=== PATIENT | male | born 1955 | race Caucasian/White ===

== ENCOUNTER → 2016-11-14 | Outpatient (CLI) | payer MEDICARE, OTHER ==
[2016-03-21 13:19] VITALS: BP 111/59
[~2016-11-14] MED LIST: BACL10TA PO; CHOL10003 PO; CITA20TA9 PO; CYAN10005 PO; CYCL10TA2 PO; DOCU-27 PO; FLUT16SP NS; HYDR25TA9 PO; LEVO125T5 PO; LISI-338 PO; METH-37 PO; MULT-208 PO; OXYC10TA PO; PANT40TA5 PO; RISP1TAB43 PO; TACR1CAP4 PO; ZOLP10TA4 PO
--- NOTE | 2016-11-14 16:32 | KCIC ---
PROCEDURE MR of the left wrist HISTORY Chronic wrist pain. Injury 40 years ago. COMPARISON None available. 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 FINDINGS There is moderate motion degradation. There is a transverse fracture across the proximal waist of the scaphoid. Fracture appears chronic and ununited. The proximal pole demonstrates diffusely low T1 signal which would also support the diagnosis of proximal pole osteonecrosis. Triangular fibrocartilage appears intact. Extensor carpi ulnaris tendon appears intact. Other extensor compartments appear intact. Flexor tendons are intact. The median nerve is unremarkable. Difficult to evaluate scapholunate ligament due to the motion degradation. There is some widening of the scapholunate space which may indicate scapholunate ligament tear or dissociation. There does appear to be an increased scapholunate angle. No definite lunotriquetral ligament tear. There is a small fluid collection anterior to the medial wrist, may represent radiocarpal effusion or a ganglion cyst. There is a small radiocarpal and midcarpal joint effusion. No definite acute fracture. Cystic type change identified within the hamate. No aggressive bone destruction. There is soft tissue edema around the wrist, greatest dorsally. TECHNIQUE Standard noncontrast images are obtained. IMPRESSION 1. 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 2. Widening of the scapholunate distance with increased scapholunate angle, suggesting scapholunate ligament tear and dissociation. Electronically signed by: Moses Mcdonough MD (Nov 14, 2016 16:31:49)
== END | disposition home or self-care (01) ==
LOC: KCIC MRI 15:00
PROVIDERS: ATTEND Nurse Practitioner Family
DX: M25.532 Pain in left wrist (principal)
CPT/HCPCS: 73221

== ENCOUNTER → 2017-06-22 | Outpatient (CLI) | payer MEDICARE, OTHER ==
[2016-03-21 13:19] VITALS: BP 111/59
[~2017-06-22] MED LIST changes: +BUDE10.22 IH; +DIPH25CA58 PO; +DOCU-109 PO; -DOCU-27 PO; +LIDO1ADH TP; +METF-620 PO; +MORP30TA PO; +ONDA4TAB10 SL; +OXYC-327 PO; +TEST200V3 IM
--- NOTE | 2017-06-22 14:36 | KCIC ---
MRI right shoulder without contrast dated 06/22/2017 1:15 PM Indication: Shoulder pain history of rotator cuff tear , pain for 2 weeks prior surgery Comparison: 02/25/2016 Technique: Routine multiplanar multisequence imaging performed. . Findings: Intermediate T2 signal throughout the supraspinatus and infraspinatus portions of the rotator cuff. Full-thickness tear of the central supraspinatus footplate measures approximately 1.5 cm transverse and 1.8 cm AP dimension. There is also involvement of the upper margin of the subscapularis. Torn portion of the cuff is retracted to about the 12:00 position. Mild hypertrophic change of the AC joint. No significant undersurface spurring. Acromion type II morphology. Small amount of subacromial/subdeltoid bursal fluid. Intermediate T2 signal within the substance of the long head biceps tendon proximally. Extra articular portion courses within the bicipital groove. Blunted morphology of the posterior superior labrum. No displaced labral tear or para labral cyst. Mild degenerative change of the glenohumeral joint with mild thinning and surface irregularity of the glenoid articular cartilage. No full-thickness cartilage defect. No significant joint effusion. Suprascapular and spinoglenoid notches are clear. No significant muscle edema or muscle atrophy. IMPRESSION: 1. Rotator cuff tendinopathy with moderate size full-thickness tear of the supraspinatus footplate. The torn portion of the cuff is retracted to about the 12:00 position. 2. Mild AC joint arthropathy with small subacromial/subdeltoid bursal effusion. 3. Mild proximal biceps tendinosis. 4. Small SLAP tear of the posterior superior labrum, likely degenerative type I. 5. Mild degenerative arthrosis and chondromalacia of the glenohumeral joint. Electronically signed by: Moses Morejon MD (06/22/2017 2:33 PM) [facility]
== END | disposition home or self-care (01) ==
LOC: KCIC MRI 12:48
PROVIDERS: ATTEND Orthopaedic Surgery Sports Medicine
DX: S43.431A Superior glenoid labrum lesion of right shoulder, initial encounter (principal); M75.101 Unspecified rotator cuff tear or rupture of right shoulder, not specified as traumatic; M94.211 Chondromalacia, right shoulder; X58.XXXA Exposure to other specified factors, initial encounter; Y93.89 Activity, other specified; Y92.89 Other specified places as the place of occurrence of the external cause; Y99.8 Other external cause status; Z98.890 Other specified postprocedural states
CPT/HCPCS: 73221

== ENCOUNTER 2017-07-10 05:45 | Observation (INO) | payer MEDICARE, OTHER ==
[2017-07-10] VITALS (8 sets, daily range): BP systolic 103–122; BP diastolic 61–72
[~2017-07-10] VITALS: Ht 181.6 cm; Wt 106.1 kg
[~2017-07-10 05:45] MED LIST changes: -LIDO1ADH TP; -ONDA4TAB10 SL; -OXYC-327 PO
[2017-07-10] MEDS ORDERED: CLINDAMYCIN 900MG PREMIX 50 ML IV PRN (06:00)
[2017-07-10] MEDS ORDERED: LIDOCAINE 1% 20 ML VIAL. ONE (06:31)
[2017-07-10] MEDS ORDERED: EPINEPHrine VIAL 30 MG/30 ML VIAL ONE (06:31)
[2017-07-10] MEDS ORDERED: BUPIVACAINE MPF 0.5% 30 ML VIAL. ONE (06:31)
[2017-07-10] MEDS ORDERED: ONDANSETRON PF 4 MG/2 ML VIAL. ONE (07:00)
[2017-07-10] MEDS ORDERED: DEXAMETHASONE SOD PHOS 20 MG/5 ML VIAL. ONE (07:00)
[2017-07-10] MEDS ORDERED: LIDOCAINE 1% PF 2 ML VIAL. ID PRN (07:00)
[2017-07-10] MEDS ORDERED: IV RINGERS,LACTATED 1000ML 1,000 ML IV SCH (07:00)
[2017-07-10] MEDS ORDERED: PROCHLORPERAZINE 10 MG/2 ML VIAL. IV PRN (07:00)
[2017-07-10] MEDS ORDERED: fentaNYL PF VIAL 100 MCG/2 ML VIAL IV PRN ×2 (07:00)
[2017-07-10] MEDS ORDERED: PROPOFOL 20 ML IV ONE (07:00)
[2017-07-10] MEDS ORDERED: LIDOCAINE 2% PF Vial for OR 5 ML VIAL. ONE (07:00)
[2017-07-10] MEDS ORDERED: FAMOTIDINE 20 MG/2 ML VIAL ONE (07:00)
[2017-07-10] MEDS ORDERED: fentaNYL PF VIAL 100 MCG/2 ML VIAL ONE (07:03)
[2017-07-10] MEDS ORDERED: ROCURONIUM 100 MG/10 ML VIAL. ONE (07:03)
[2017-07-10] MEDS ORDERED: ROPIVacaine 0.5% PF 30 ML VIAL. ONE (07:10)
[2017-07-10] MEDS ORDERED: MIDAZOLAM HCL/PF 2 MG/2 ML VIAL. ONE (07:10)
--- NOTE | 2017-07-10 07:32 | DISCH ---
DISCHARGE INSTRUCTIONS Condition on Discharge Condition on Discharge: Stable Activity After Discharge Activity Instructions for Disc: Other, see below Other activity instructions: arm to remain in sling Bathing Instructions: Shower-keep dressing dry Weight Bearing Status after Di: Non weight bearing Diet after Discharge Diet after Discharge: Regular Wound Incision Care Wound/Incision Care: Ice to area for comfort, Keep wound/cast CDI, Change dressing Contacting the DR. after DC Call your doctor for: Concerns you may have Follow-Up Follow up with: Neelam in 2wks Treatment/Equipment after DC Adaptive Equipment Issued: None BLOSSOM AVILA II, MD Jul 10, 2017 07:32
--- NOTE | 2017-07-10 07:34 | PDOC ---
BRIEF OPERATIVE NOTE Date: Jul 10, 2017 Pre-Op Diagnosis Recurrent R RTC tear Post-Op Diagnosis same Procedure Performed Mini-open R RTC repair; Diagnostic R shoulder arthroscopy Surgeon Neelam Martin Anesthesia Type: General, Regional Blood Loss 25mL Complications none BLOSSOM AVILA II, MD Jul 10, 2017 07:33
[2017-07-10] MEDS ORDERED: PHENYLEPHRINE in 0.9% NACL PF 1 MG/10 ML DISP.SYRIN. IV ONE (08:08)
[2017-07-10] MEDS ORDERED: GLYCOPYRROLATE 1 MG/5 ML VIAL. ONE (08:37)
[2017-07-10] MEDS ORDERED: NEOSTIGMINE 10 MG/10 ML VIAL. ONE (08:37)
[2017-07-10] MEDS ORDERED: SEVOFLURANE 61 TO 120 MINUTES. IH ONE (09:10)
[2017-07-10] MEDS ORDERED: OXYC-327 PO (09:26)
[2017-07-10] MEDS ORDERED: DOCU-109 PO (09:27)
[2017-07-10] MEDS ORDERED: ONDA4TAB10 SL (09:27)
[2017-07-10] MEDS ORDERED: LIDO1ADH TP (09:30)
--- NOTE | 2017-07-10 09:49 | OP ---
DATE OF SURGERY: 07/10/2017 SURGEON: Ramon Avila MD POWER AND [employer]OVERY SUPERINTENDENT: Ibeth Martin. PREOPERATIVE DIAGNOSIS: Recurrent right shoulder rotator cuff tear. POSTOPERATIVE DIAGNOSIS: Recurrent right shoulder rotator cuff tear. PROCEDURE PERFORMED: 1. Mini open right shoulder rotator cuff repair. 2. Diagnostic shoulder arthroscopy. FINDINGS: 1. The patient had a full-thickness tear involving his supraspinatus and leading edge of the infraspinatus that was not retracted much past the mid humeral head. The tendon mobility was quite adequate for repair. 2. No loose bodies. 3. The rotator cuff tendon had essentially pulled free from the suture anchor implant as evidenced by intact knots at the remaining suture from his prior repair. 4. He had some degenerative type fraying around his anterior labrum. 5. Biceps was intact. 6. He had grade 2-3 changes at his anterior glenoid, otherwise his glenohumeral cartilage was largely unremarkable. BLOOD LOSS: 25 mL. COMPLICATIONS: None. ANESTHESIA: General plus regional nerve block. REASON FOR PROCEDURE: The patient is a very pleasant 61-year-old gentleman who underwent arthroscopic right shoulder rotator cuff repair with myself a little over a year ago. He had a fall while trimming tree branches and had persistent pain and shoulder dysfunction with loss of motion and strength and therefore, we obtained an MRI, which confirmed my clinical examination of a recurrent rotator cuff tear. We had a discussion of risks, benefits, alternatives of the above procedure and he elected to proceed. DESCRIPTION OF PROCEDURE: The patient was greeted in the preoperative area by myself, where the correct extremity was marked and verified. He was taken to the operative suite after he had successful placement of nerve block by the anesthesiology team. Once in the OR, he was transferred gently supine to the OR table and secured to the bed after successful induction of general anesthetic. We set him up in a beach chair position, maintaining C-spine in neutral position. We then proceeded to prep and drape the right upper extremity in our usual sterile fashion and conducted a standard preoperative timeout. I palpated for his surface anatomy and made an incision through his prior posterolateral portal as I still felt this was appropriate. I introduced the blunt arthroscopic trocar into the glenohumeral joint, followed by the camera. I then used a spinal to localize anterosuperior portal and created this with the scalpel to my prior portal. I then conducted my diagnostic arthroscopy with the above-noted findings. I then removed all excess arthroscopic fluid and the arthroscopic instrumentation and proceeded with the mini open portion. We did a re-prep around the shoulder. I then palpated, marked the surface anatomy and made approximately 6 cm incision just at the lateral edge of his lateral acromion, incised skin with a scalpel and dissected down to the fascia overlying his deltoid with electrocautery. I then identified the deltoid raphae, used a scalpel to enter this, followed by Natalia and electrocautery to further develop this plane. I placed my 2 Gelpi retractors. I then excised bursal tissue and identified his humeral head and rotator cuff. I then passed a #2 Ultrabraid through the rotator cuff tear in a simple configuration. For the most part, his tendon quality was okay. I then created a trough in his rotator cuff footprint and removed the prior sutures. After this, I passed the #2 Ultrabraid through in a sequential fashion, the top of one and bottom of another through a bone tunnel with a free needle. I then tied down the sutures to each other over the bony bridge. I tested the repair and inspected it and felt there was a good repair. I noted no gapping at the bone tendon interface and it felt stable to probing with a Natalia. I then irrigated out the operative field with sterile normal saline and closed the deltoid fascia with simple interrupted #2 Vicryl, followed by inverted interrupted 2-0 for the subcutaneous tissue and running 4-0 Monocryl for the skin. The patient tolerated surgery well. No complications. Prior to completion of wound closure, all counts were reported correct x 2. At the conclusion of surgery, his arm was cleansed and dried and sterile dressing was applied. 3-0 nylon in simple fashion used for portals. After a sterile dressing, a shoulder abduction pillow sling was applied. He was awakened from anesthesia, laid supine, transferred gently supine to the recovery room cart and taken to PACU in stable and extubated condition. Postoperative plan is nonweightbearing x 6 weeks. We will get him started on PT when I see him back in clinic in 2 weeks. He will follow up with me in 2 weeks, sooner should problems arise. RAMON AVILA MD DR: JILLIAN/margo JOB#: [id number] / [id number] FREIDA
[2017-07-10] MEDS ORDERED: ALBUTEROL SULFATE 2.5 MG/3 ML NEBU. ONE (10:39)
[2017-07-10] MEDS ORDERED: ALBUTEROL SULFATE 2.5 MG/3 ML NEBU. NEB ONE (10:45)
[2017-07-10] MEDS ORDERED: HYDROcodone/APAP 7.5/325MG 1 TAB TABLET PO PRN (11:15)
[2017-07-10] MEDS ORDERED: oxyCODONE/APAP 7.5/325 1 TAB TABLET PO PRN (11:15)
[2017-07-10] MEDS ORDERED: PROCHLORPERAZINE 5 MG TABLET. PO PRN (11:15)
[2017-07-10] MEDS ORDERED: CALCIUM CARBONATE 500 MG TAB.CHEW PO PRN (11:15)
[2017-07-10] MEDS ORDERED: 0.9 % SODIUM CHLORIDE 10 ML DISP.SYRIN. IV PRN (11:15)
[2017-07-10] MEDS ORDERED: METOCLOPRAMIDE HCL 10 MG/2 ML VIAL. IV PRN (11:15)
[2017-07-10] MEDS ORDERED: oxyCODONE/APAP 5/325 1 TAB TABLET PO PRN (11:15)
[2017-07-10] MEDS ORDERED: HYDROcodone/APAP 10/325 1 TAB TABLET PO PRN (11:15)
[2017-07-10] MEDS ORDERED: traMADol 50 MG TABLET PO PRN ×2 (11:15)
[2017-07-10] MEDS ORDERED: DEXTROSE 50% 25 GM / 50ML DISP.SYRIN. IV PRN (11:15)
[2017-07-10] MEDS: CLINDAMYCIN 900MG PREMIX 50 ML IV SCH ×2 (17:53→23:30)
[2017-07-10] MEDS: IV DEXTROSE 5 %-0.45 % NACL 1,000 ML IV SCH ×2 (17:53→21:14)
[2017-07-11] MEDS ORDERED: NON FORMULARY ITEM (Budesonide/Formoterol Fumarate (Symbicort 80-4.5 Mcg Inhaler) 1 PUFF) IH PRN (02:41)
[2017-07-11 03:00] VITALS: BP 116/62
[2017-07-11] MEDS: BUDESONIDE 0.5 MG/2 ML NEBU. NEB SCH ×2 (03:08→07:22)
[2017-07-11] MEDS: ALBUTEROL SULFATE 2.5 MG/3 ML NEBU. NEB SCH ×2 (03:08→07:22)
[2017-07-11] MEDS ORDERED: MAGNESIUM HYDROXIDE 2,400 MG/30 ML ORAL.SUSP. PO PRN (06:00)
[2017-07-11] MEDS: IV DEXTROSE 5 %-0.45 % NACL 1,000 ML IV SCH (07:14)
[2017-07-11 07:15] VITALS: BP 132/76
[2017-07-11] MEDS ORDERED: NON FORMULARY ITEM (Budesonide/Formoterol Fumarate (Symbicort 80-4.5 Mcg Inhaler) 1 PUFF) IH SCH (09:00)
[2017-07-11] MEDS ORDERED: MULTIVITAMIN with MINERAL TABLET. PO SCH (09:00)
[2017-07-11] MEDS ORDERED: SENNOSIDES/DOCUSATE 8.6/50MG TABLET. PO SCH (09:00)
--- NOTE | 2017-07-11 09:46 | PDOC ---
ORTHO PROGRESS NOTES Subjective After surgery, Tom was drowsy and had difficulty maintaining his oxygen saturation while in the PACU and was therefore admitted for observation. He underwent a respiratory treatment and he feels like he is more awake and doing much better today. He is uncertain as to why this happened. He tells me his pain is tolerable, he feels like he has good control of his hand right now. Vitals Vital Signs Date Time Temp Pulse Resp B/P (MAP) Pulse Ox O2 Delivery O2 Flow Rate FiO2 07/11/17 07:28 97 Nasal Cannula 6.0 07/11/17 07:15 98.0 68 20 132/76 (94) 98.0 Labs Laboratory Tests Test 07/10/17 10:02 07/10/17 12:55 07/10/17 21:18 07/11/17 07:42 Glucose (Fingerstick) 127 mg/dL (70-99) 158 mg/dL (70-99) 173 mg/dL (70-99) 136 mg/dL (70-99) Laboratory Tests Test 07/10/17 10:02 07/10/17 12:55 07/10/17 21:18 07/11/17 07:42 Glucose (Fingerstick) 127 mg/dL (70-99) 158 mg/dL (70-99) 173 mg/dL (70-99) 136 mg/dL (70-99) Notes He is awake and alert and sitting in a chair. Right upper extremity is in a sling. He is eating breakfast. I do notice that he moves his right arm quite a bit more than I would prefer. Motor and sensation are intact median, radial, and ulnar nerves distally in his right hand. Assessment and Plan He can be discharged home. I did discuss appropriate pain medicine use with him. We will see him back in 2 weeks, sooner should a problem arise. I discussed appropriate activity restriction as well. BLOSSOM AVILA II, MD Jul 11, 2017 09:46
--- NOTE | 2017-07-11 09:49 | PDOC3 ---
Discharge Summary Visit Information Date of Admission: Jul 10, 2017 Date of Discharge: Jul 11, 2017 Admitting Diagnosis: right rotator cuff tear, recurrent Brief Hospital Course Allergies Allergies Coded Allergies Type Severity Reaction Last Updated Verified Penicillins Allergy Severe Anaphylaxis 07/10/17 Yes nalbuphine Allergy Mild "COLD SWEATS AND HIGH BLOOD PRESSURE" 07/10/17 Yes Vital Signs Vital Signs Date Time Temp Pulse Resp B/P (MAP) Pulse Ox O2 Delivery O2 Flow Rate FiO2 07/11/17 07:28 97 Nasal Cannula 6.0 07/11/17 07:15 98.0 68 20 132/76 (94) 98.0 Lab Results Laboratory Tests Test 07/10/17 10:02 07/10/17 12:55 07/10/17 21:18 07/11/17 07:42 Glucose (Fingerstick) 127 mg/dL (70-99) 158 mg/dL (70-99) 173 mg/dL (70-99) 136 mg/dL (70-99) Laboratory Tests Test 07/10/17 10:02 07/10/17 12:55 07/10/17 21:18 07/11/17 07:42 Glucose (Fingerstick) 127 mg/dL (70-99) 158 mg/dL (70-99) 173 mg/dL (70-99) 136 mg/dL (70-99) Brief Hospital Course Mr. Carbajal is a 61 old male who underwent successful right rotator cuff repair with myself over a year ago. He had a subsequent fall and had worsening pain and loss of motion in his right arm. Clinical and radiographic workup were consistent with recurrent tear. We had a discussion of the risks benefits and alternatives to proceeding with diagnostic arthroscopy to inspect the status of the cuff and mini open repair. He tolerated surgery well and recovered well from anesthesia in the PACU with the exception of drowsiness and difficulty maintaining his oxygen saturation. We made the decision to admit him for observation. He did undergo respiratory therapy treatment. He was feeling much better and more awake and alert following morning. His O2 sats were stable. His pain was controlled. He was maintaining normal bowel and bladder function. He was tolerating regular diet. He remained hemodynamically stable throughout his hospital stay. Discharge Information Condition at Discharge: Stable Follow Up: Weeks Disposition/Orders: D/C to Home Scheduled Baclofen (Baclofen), 1 TAB PO TID, (Reported) Budesonide/Formoterol Fumarate (Symbicort 80-4.5 Mcg Inhaler), 1 PUFF IH BID, ( Reported) Cholecalciferol (Vitamin D3) (Vitamin D3), 1 TAB PO DAILY, (Reported) Citalopram Hydrobromide (Celexa), 1 TAB PO DAILY, (Reported) Cyanocobalamin (Vitamin B-12) (Vitamin B-12), 1 TAB PO DAILY, (Reported) Cyclobenzaprine Hcl (Cyclobenzaprine Hcl), 1 TAB PO TID, (Reported) Diphenhydramine Hcl (Benadryl), 25 MG PO HS, (Reported) Docusate Sodium (Colace), 1 CAP PO BID, (Reported) Fluticasone Propionate (Fluticasone Propionate Nasal [place]), 2 SPRAY NS DAILY, ( Reported) Levothyroxine Sodium (Levothyroxine Sodium), 1 TAB PO DAILY, (Reported) Lidocaine/Menthol (Lidopatch), 0 TP DAILY, (Reported) Lisinopril (Lisinopril), 1 TAB PO DAILY, (Reported) Metformin Hcl (Metformin Hcl), 1,000 MG PO BIDWMEALS, (Reported) Methocarbamol (Robaxin), 1 TAB PO BID, (Reported) Morphine Sulfate (Morphine Sulfate), 30 MG PO BID, (Reported) Multivitamin (Multi-Day Vitamins), 1 TAB PO DAILY, (Reported) Ondansetron (Zofran Odt), 1 TAB SL Q8HRS, (Reported) Pantoprazole Sodium (Pantoprazole Sodium), 1 TAB PO DAILY, (Reported) Risperidone (Risperdal), 1 TAB PO QHS, (Reported) Tacrolimus (Prograf), 1 CAP PO BID, (Reported) Testosterone Cypionate (Testosterone Cypionate), 200 MG IM Q4WK, (Reported) Scheduled PRN Oxycodone Hcl (Oxycodone Hcl), 10 MG PO Q4HRS PRN for PAIN, (Reported) Oxycodone/Apap 7.5-325 (Percocet 7.5-325 Mg Tablet), 1 TAB PO PRN Q3HRS PRN for PAIN, (Reported) Discontinued Medications Docusate Sodium (Colace), 100 MG PO, (Reported) Hydrochlorothiazide (Hydrochlorothiazide Tablet ), 1 TAB PO DAILY, (Reported) Zolpidem Tartrate (Zolpidem Tartrate), 1 TAB PO QHS, (Reported) Patient Instructions Patient Instructions I did discuss worrisome signs and symptoms that should prompt a phone call to my clinic. He will be nonweightbearing right upper extremity 6 weeks. We will get him started PT after I see him back in clinic. He is to remain in the sling. Wound care instructions were discussed with him as well. BLOSSOM AVILA II, MD Jul 11, 2017 09:49
[2017-07-11] MEDS: CLINDAMYCIN 900MG PREMIX 50 ML IV SCH (10:00)
[2017-07-11 11:09] VITALS: BP 135/71
[2017-07-11] MEDS ORDERED: BISACODYL 10 MG SUPP.RECT. PR PRN (16:00)
== END 2017-07-11 11:02 | disposition home or self-care (01) ==
LOC: SURG 05:45 → 4 NORTH 11:27
PROVIDERS: ADMIT Orthopaedic Surgery Sports Medicine; ATTEND Orthopaedic Surgery Sports Medicine
DX: S46.011D Strain of muscle(s) and tendon(s) of the rotator cuff of right shoulder, subsequent encounter (principal); W19.XXXD Unspecified fall, subsequent encounter
CPT/HCPCS: 23410; 82962; 94250; 94640; 94660; 94760; 96365; 96375; 96376; C1782; G0378; G0379; J0171; J1100; J2250; J2370; J2405; J2704; J2710; J2795; J3490; J7120; J7613; J7626; S0028; J3010; J2001